=== PATIENT | male | born 1965 | race Caucasian/White ===

== ENCOUNTER → 2021-11-22 | Outpatient (CLI) | payer BC | END | disposition home or self-care (01) | LOC: LABPAT 15:07 | PROVIDERS: ATTEND Surgery | DX: Z01.812 Encounter for preprocedural laboratory examination (principal); K40.90 Unilateral inguinal hernia, without obstruction or gangrene, not specified as recurrent | CPT/HCPCS: 85025; 86850; 86900; 86901; 93005 ==

== ENCOUNTER 2021-11-26 08:34 | Day surgery (SDC) | payer BC ==
[2021-11-22 22:36] LABS: Basophils # (A) 0.05 X 10*3/uL (0.00-0.10); Eosinophils # (A) 0.03 X 10*3/uL (0.04-0.35); Eosinophils % (A) 0.6 %; HGB 15.2 g/dL (13.0-17.0); Immature Grans, Automated 0.2 %; Lymphocytes # (A) 1.48 X 10*3/uL (0.90-5.00); MCH 33.3 pg (27.0-32.0); MCHC 34.5 g/dL (32.0-37.0); MCV 96.3 fL (80.0-97.0); Mean Platelet Volume 10.2 fL (9.5-12.2); Monocytes # (A) 0.71 X 10*3/uL (0.20-1.00); Monocytes % (A) 14.4 %; NRBC Per 100 WBC 0 /100 WBCS (0.0-0.0); Neutrophils # (A) 2.65 X 10*3/uL (1.80-7.70); Neutrophils % (A) 53.8 %; Platelet Count 178 X 10*3/uL (140-440); RBC 4.57 X 10*6/uL (4.40-5.60); RDW 12.1 % (11.5-14.5); WBC 4.93 X 10*3/uL (4.50-10.00)
--- NOTE | 2021-11-26 07:40 | P.GSHP ---
History of Present Illness H&P Date: 11/26/21 Chief Complaint: Left inguinal hernia 56-year-old male here today for elective repair left inguinal hernia. Patient says this is been there for the last several months. Mild pain at times. No symptoms on the right. No prior hernias. Past Medical History Past Medical History: Hypertension History of Any Multi-Drug Resistant Organisms: None Reported Past Surgical History: No Surgical Hx Reported Past Anesthesia/Blood Transfusion Reactions: No Reported Reaction Additional Past Anesthesia/Blood Transfusion Reaction / Comment(s): no hx anesthesia or transfusions Smoking Status: Current every day smoker - Past Family History Father Family Medical History: Diabetes Mellitus Mother Family Medical History: No Reported History Additional Family Medical History / Comment(s): Medications and Allergies Home Medications Medication Instructions Recorded Confirmed Type Losartan Potassium 100 mg PO DAILY 03/19/16 11/23/21 History Allergies Allergy/AdvReac Type Severity Reaction Status Date / Time No Known Allergies Allergy Verified 11/23/21 08:18 Surgical - Exam Physical exam: General: Well-developed, well-nourished HEENT: Normocephalic, sclerae nonicteric Abdomen: Nontender, nondistended, reducible left inguinal hernia Extremities: No edema Neuro: Alert and oriented Results - Labs 11/22/21 15:14 Assessment and Plan (1) Left inguinal hernia Narrative/Plan: 56-year-old male with left inguinal hernia. We'll proceed with to da Seema assisted laparoscopic repair left inguinal hernia with mesh, possible open, possible bilateral. Risks of bleeding, infection, recurrence, bladder and bowel injury, numbness, nerve injury, conversion to an open procedure were discussed with the patient. The patient understands and wishes to proceed. Status: Acute Code(s): K40.90 - UNIL INGUINAL HERNIA, W/O OBST OR GANGR, NOT SPCF RECUR SNOMED Code(s): 597581209
[~2021-11-26 08:34] MED LIST: ACETAMINOPHEN TAB 500 MG TAB PO PRN; DEXAMETHASONE SOD PHOSPHATE 4 MG/ML 1 ML VIAL IV ONE; HEPARIN SODIUM,PORCINE/PF 5,000 UNIT/0.5 ML SYRINGE SQ PRN; HYDROmorphone 0.5 MG/0.5 ML SYRINGE IVP PRN; LACTATED RINGERS 1,000 ML IV SCH; MIDAZOLAM 2 MG/2 ML VIAL IV PRN; ONDANSETRON 4 MG/2 ML VIAL IVP ONE; SCOPOLAMINE 1 MG/72 HR PATCH TRANSDERM ONE
[2021-11-26] MEDS ORDERED: BUPIVACAIN-EPI 0.25%-1:200,000 30 ML VIAL SQ ONE ×3 (09:09→09:53)
[2021-11-26 09:17] LABS: Glucose,Whole Blood 85 mg/dL (70-110)
[2021-11-26] MEDS ORDERED: ROCURONIUM 10 MG/ML (5 ML VIAL) IV ONE (09:32)
[2021-11-26] MEDS ORDERED: GLYCOPYRROLATE 0.2 MG/ML 2 ML VIAL ONE (09:32)
[2021-11-26] MEDS ORDERED: fentaNYL (PF) 50 MCG/ML 2 ML AMP ONE (09:32)
[2021-11-26] MEDS ORDERED: LABETALOL 5 MG/ML VIAL MDV ONE (09:32)
[2021-11-26] MEDS ORDERED: KETOROLAC 15 MG/ML 1 ML VIAL ONE (09:32)
[2021-11-26] MEDS ORDERED: PROPOFOL 10 MG/ML 20 ML VIAL IV ONE (09:32)
[2021-11-26] MEDS ORDERED: HYDROmorphone (PF) 1 MG/ML ONE (09:32)
[2021-11-26] MEDS ORDERED: MIDAZOLAM 2 MG/2 ML VIAL ONE (09:32)
[2021-11-26] MEDS ORDERED: LIDOCAINE 2% INJ 20 MG/ML (2 ML VIAL) ONE (09:32)
[2021-11-26] MEDS ORDERED: NEOSTIGMINE 1 MG/ML 10 ML VIAL ONE (09:32)
[2021-11-26] MEDS ORDERED: LACTATED RINGERS 1,000 ML IV ONE ×2 (10:12→12:15)
[2021-11-26 11:07] VITALS: RESP 16; TEMP 97.6
--- NOTE | 2021-11-26 11:16 | P.OP ---
Date of Procedure: 11/26/21 Procedure(s) Performed: PREOPERATIVE DIAGNOSIS: Left inguinal hernia POSTOPERATIVE DIAGNOSIS: Same PROCEDURE: Da Seema assisted laparoscopic repair left inguinal hernia SURGEON: Dr. Espinosa ANESTHESIA: General OPERATIVE PROCEDURE DETAILS: Patient was placed in the operating table in the supine position. The patient was placed under general anesthesia. The abdomen was prepped and draped in usual sterile fashion. A small curvilinear supraumbilical incision was made. The fascia was retracted anteriorly with Gary forceps. The Veress needle was inserted. The saline drop test was normal. Insufflation took place to 15 mmHg. An 8 mm trocar was placed into the peritoneal cavity. 2 additional 8 mm trochars were placed in the right upper quadrant and left upper quadrant under visualization. The robotic arms were then brought in and docked into place. The fenestrated bipolar was used in the left arm and the laparoscopic amanda was utilized in the right arm. A 30 8 mm scope was used in the up position. The peritoneal cavity was inspected. The patient had no visible hernias on the right-hand side. An obvious indirect hernia was seen on the left. The left side was addressed. The peritoneum was incised in a horizontal fashion cephalad to the internal inguinal ring. Following that careful dissection of the preperitoneal space took place. This took place using both electrocautery, sharp dissection but primarily blunt dissection. Visualization of the pubic tubercle and Oni's ligament took place medially. Full dissection took place laterally as well. The patient had in addition to the indirect inguinal hernia a small less than 1 cm defect in the direct space. Both hernia sacs were fully dissected. Once we had adequate space the extra-large Bard 3-D mid mesh was advanced into the preperitoneal space and flattened out appropriately to cover all potential hernia sites. No sutures were used. The peritoneal defect was then closed using a absorbable 2-0 VLok suture. The hernia sac was incorporated into the peritoneal closure to help prevent future recurrence. The pneumoperitoneum was then evacuated. The skin of all 3 sites was closed using a 4-0 Monocryl stitch. Skin glue was then applied. TYPE OF MESH USED: Bard 3-D mid extra-large LOCATION OF MESH: Preperitoneal FIXATION: None PREOPERATIVE DISCUSSION ON SMOKING CESSASTION: Yes PREOPERATIVE DISCUSSION ON MORBID OBESITY: Yes PREOPERATIVE DISCUSSION ON APPROPRIATE USE OF NARCOTIC USE: Yes PREOPERATIVE EDUCATION: Multi Modal, Smoking Cessation and Weight Loss with BMI over 35. DISPOSITION: Stable to recovery room
[2021-11-26] MEDS ORDERED: ACETAMINOPHEN TAB 325 MG TAB PO SCH (12:00)
[2021-11-26 12:34] VITALS: BP 133/78; PULSE 45
[2021-11-26] MEDS ORDERED: TAMSULOSIN 0.4 MG CAP.ER.24H PO ONE (13:46)
[2021-11-26] MEDS ORDERED: IV FLUID CONTINUATION 1,000 ML IV ONE (13:47)
[2021-11-26] MEDS ORDERED: IBUPROFEN 600 MG TAB PO SCH (14:15)
== END 2021-11-26 15:15 | disposition home or self-care (01) ==
LOC: OR 08:34
PROVIDERS: ATTEND Surgery
DX: K40.90 Unilateral inguinal hernia, without obstruction or gangrene, not specified as recurrent (principal)
CPT/HCPCS: 86900; 86901; 85025; 86850; 93005; 49650; C1781; J2250; J1100; J2710; J0690; J2405; J3010; J1170; J1885; J2704; J1644; J2001

== ENCOUNTER → 2023-12-06 | Outpatient (CLI) | payer BC ==
--- NOTE | 2023-12-06 22:38 | MR ---
EXAMINATION TYPE: MR shoulder RT wo con DATE OF EXAM: 12/06/2023 COMPARISON: Outside right shoulder x-ray December 01, 2013 HISTORY: Severe right shoulder pain x 2 weeks, limited ROM, no trauma. TECHNIQUE: Multiplanar, multisequence imaging of the right shoulder is performed without contrast. FINDINGS: Rotator Cuff: Intact supraspinatus and infraspinatus tendons. Slight increased signal along their cou rse. Intact subscapularis tendon. Rotator cuff muscle bulk is preserved Acromioclavicular Joint: Moderate narrowing with mild capsular hypertrophy and spurring Glenohumeral Joint: Small joint effusion. No significant spurring is seen. Focal fluid or loculated c ystic lesion along the posterior aspect of the osseous glenoid measuring 2.1 x 0.7 cm axial image 18 Labrum: The labrum appears grossly intact given limitation of non-arthrogram study. Biceps Tendon: The long head of biceps is in normal location within bicipital groove. Bone marrow signal: Some heterogeneity consistent with red marrow reconversion. Other: No additional significant abnormality is appreciated. IMPRESSION: 1. Mild tendinosis of supraspinatus and infraspinatus tendon. No rotator cuff or labral tear is seen. Other findings as noted above.
== END | disposition home or self-care (01) ==
LOC: RADMRIMAIN 13:44
PROVIDERS: ATTEND Orthopaedic Surgery
DX: M67.813 Other specified disorders of tendon, right shoulder (principal)

== ENCOUNTER → 2024-01-13 | Outpatient (CLI) | payer BC ==
--- NOTE | 2024-02-04 13:29 | MR ---
Patient: Babar Bender E Ordering Physician: Unknown, Unknown ID: [id number] Phone, Pager: Phone: N/A Pager: N/A : [phone] Age/Gender: 58Y, M Primary Location: N/A Procedure: MR cervical spine wo Study Date: 01/13/2024 6:18:36 PM EXAMINATION TYPE: MR cervical spine wo con DATE OF EXAM: 01/28/2024 6:40 AM CLINICAL INDICATION: Neck pain into right shoulder COMPARISON: 12/29/2023. TECHNIQUE: Multi planar, multi sequence imaging was performed utilizing: T1-weighted, T2-weighted, an d turbo inversion recovery imaging of the cervical spine. IV Contrast: cc (none if empty) FINDINGS: Alignment: The cervical vertebral bodies have preserved heights. Alignment is within normal limits gi todd patient positioning. Bones: Scattered Modic endplate changes with osteophytes and disc space narrowing. Multilevel degener ative disc disease is noted and most pronounced at the C5-C7 vertebral levels. Cord: The spinal cord is unremarkable with regards to their signal intensity and morphology. Discs: Intervertebral disc signal is maintained. C2-C3: No significant disc pathology. The spinal canal is patent. No neural foraminal stenosis. C3-C4: No significant disc pathology. The spinal canal is patent. Bilateral facet and uncovertebral joint arthropathy are present with moderate right and mild left neural foraminal stenosis. C4-C5: No significant disc pathology. The spinal canal is patent. Bilateral facet and uncovertebral joint arthropathy are present with moderate to severe bilateral neural foraminal stenosis. C5-C6: No significant disc pathology. The spinal canal is patent. Bilateral facet and uncovertebral joint arthropathy are present with moderate to severe left and moderate neural foraminal stenosis. C6-C7: No significant disc pathology. The spinal canal is patent. Bilateral facet and uncovertebral joint arthropathy are present with moderate to severe right and moderate left neural foraminal stenos is. C7-T1: No significant disc pathology. The spinal canal is patent. No neural foraminal stenosis. Other: None. IMPRESSION: 1. No evidence for disc herniation or significant spinal canal stenosis. 2. Moderate disc degeneration with associated osteoarthritic changes. Neural foraminal stenosis worse at C6-C7 with moderate to severe right, C5-C6 moderate to severe left and moderate to severe bilater al C4-C5.
== END | disposition home or self-care (01) ==
LOC: RADMRIMAIN 19:15
PROVIDERS: ATTEND Nurse Practitioner Family
DX: M47.22 Other spondylosis with radiculopathy, cervical region (principal); M62.81 Muscle weakness (generalized); M48.02 Spinal stenosis, cervical region
CPT/HCPCS: 72141

== ENCOUNTER → 2024-03-29 | Outpatient (CLI) | payer BC ==
[2024-03-29 08:48] VITALS: BP 151/92; PULSE 91; RESP 16; TEMP 97.3
--- NOTE | 2024-03-29 10:25 | P.PAINPG ---
PQRS Measure Charge Sheet Comment: HISTORY OF PRESENT ILLNESS: A 58 yr old male as a referral from [facility] presents today w severe and chronic neck pain > 3 mo secondary to radiculopathy, spondylosis and facet arthropathy without myelopathy for evaluation. Pt states pain level is provoked at 7 /10 in intensity, constant, localized in the mid to lower R cervical spine, predominantly axial, achy in character w occasional shooting pain towards the R shoulder and RUE. Pain is provoked by lifting. Pain is alleviated by physician guided home exercises from Dr Grubbs 5 times weekly since Jan 2024, medications (Neurontin, Celebrex), repositioning and rest . PMH: OA, HTN PSH: L Inguinal Hernia Repair (2021) SH: Daily tobacco use, Occ ETOH use, No illicit drug use FH: Fa- DM. MO- All: See list Meds: See list REVIEW OF ORGAN SYSTEMS: CONSTITUTIONAL: No fevers or chills. No recent weight loss. NEUROLOGICAL: + numbness and tingling along the distal extremities. No seizure disorders or headaches. MUSCULOSKELETAL: + pain PSYCHIATRIC: Denies current depression or suicidal thoughts. Physical Examinations : Constitutional : Cooperative , not in acute distress . Neurologic : Cranial nerve II to XII intact. No focal neurological deficits. Psychiatric : alert & oriented x 3. Matching mood & appropriate affect. Judgment & insight intact. Musculoskeletal : Cervical Spine Motor strength in the deltoid and biceps: Normal right side. Normal Left side Motor strength biceps and the wrist extensors: Normal right side . Normal left side Motor strength in the triceps muscle: Normal right side. Normal left side Deep tendon reflexes: Normal at the biceps. Normal at Brachioradialis. Normal at triceps Vertebral body tenderness to deep palpation over C6 Chisholm test positive R C6-C7 Cervical facet loading test: positive bilaterally Spurling test: positive bilaterally Neck distraction test: positive bilaterally Maya sign: positive bilaterally Lumbar spine Motor strength lower extremities ,thigh and legs 5/5 Right side , 5/5 Left side Deep tendon reflexes : Normal Knee Jerk. Normal Ankle Jerk Vertebral body tenderness over Chisholm Test positive Lumbar facet Loading Test: positive Right / positive Left Range of motion of the lumbar spine Flexion 30 degrees, extension 10 degrees Straight Leg Raise test: Left/ Right positive at degrees Jennyfer test: positive right / positive left. Severe tenderness over the Sacroiliac joint on the Right / Left sides Gaenslen test: positive bilaterally Seated flexion test: positive bilaterally. Sacral spine : Severe tenderness over the Sacroiliac joint: right side / left side Range of motion: Flexion of the lumbar spine <60 degrees Range of motion: Extension of the lumbar spine <20 degrees Gaenslen's Test positive Jennyfer test: positive right side / left side Thigh Thrust Test Sacral Thrust Test Imaging: MRI non contrast cervical spine from 01/13/24 reviewed Assessment/ Plan : Cervical raiduclopathy Recommendation of Yadiel TFMICHELA C6-C7 #1. Risks, benefits of procedure discussed and patient verbalized understanding. Admits to anti- coagulant use or medical history of diabetes. Protocol for discontinuation/ continuation of medications linda procedure discussed. All questions answered. I have spent greater than 30 minutes on patient care today. Dr Noyola was available by phone for the evaluation of this patient. The time was used to review the medical records including relevant urine studies and Prescription history (MAPs), review of the available imaging, evaluation and examination of the patient, coordination of care with the medical staff and if applicable referring physicians, as well as creation of the medical record PQRS Narrative: Smoking Status Never smoker Home Medications: Ambulatory Orders Losartan Potassium 100 mg PO DAILY 03/19/16 oxyCODONE HCL [OxyIR] 5 mg PO Q6H PRN 3 Days #6 tab 11/26/21 Controlled Substance Measures - Controlled Substance Measures Is patient prescribed a controlled substance at discharge?: No
== END ==
LOC: PNWHC3 07:56
PROVIDERS: ATTEND Specialist
DX: M47.892 Other spondylosis, cervical region
CPT/HCPCS: 99211

== ENCOUNTER 2024-04-20 13:19 | Day surgery (SDC) | payer BC ==
[2024-04-12 11:27] VITALS: BMI 23.7
[~2024-04-20 13:19] MED LIST changes: -ACETAMINOPHEN TAB 500 MG TAB PO PRN; -DEXAMETHASONE SOD PHOSPHATE 4 MG/ML 1 ML VIAL IV ONE; -HEPARIN SODIUM,PORCINE/PF 5,000 UNIT/0.5 ML SYRINGE SQ PRN; -HYDROmorphone 0.5 MG/0.5 ML SYRINGE IVP PRN; -MIDAZOLAM 2 MG/2 ML VIAL IV PRN; -ONDANSETRON 4 MG/2 ML VIAL IVP ONE; -SCOPOLAMINE 1 MG/72 HR PATCH TRANSDERM ONE
[2024-04-20 14:14] VITALS: TEMP 97
[2024-04-20] MEDS ORDERED: IOPAMIDOL M200 10 ML VIAL ONE (14:25)
[2024-04-20] MEDS ORDERED: DEXAMETHASONE SOD PHOSPHATE 10 MG/ML 1 ML VIAL ONE (14:25)
--- NOTE | 2024-04-20 14:39 | P.PCN ---
Date of Procedure: 04/20/24 Procedure(s) Performed: PREOPERATIVE DIAGNOSIS: 1-Cervical radiculopathy .2-cervical foraminal stenosis.33-cervical facet arthropathy. 4-cervical degenerative disc disease POSTOPERATIVE DIAGNOSIS: Same as preoperative diagnoses. PROCEDURE 1. Transforaminal epidural steroid injection under fluoroscopic guidance at right C6-7 level. (Fluoroscopy images stored on file in the radiology Department ) ANESTHESIA: Local with 1% lidocaine 3 ml . EBL: Minimal PROCEDURE INDICATION: The patient with severe neck pain and radiculopathy to the upper extremity , the symptoms unresponsive to conservative treatment. PROCEDURE DESCRIPTION / TECHNIQUE: The patient was seen and identified in the preoperative area. Risks, benefits, complications, and alternatives were discussed with the patient. The patient agreed to proceed with the procedure and signed the consent, and vital signs were stable. Patient was taken to the OR and time out was completed. The patient was placed in the Lateral position on procedure table ( right side up ). The cervical area was prepped and draped in the usual sterile fashion. Critical pause was taken. Vital signs were closely monitored during the procedure. Using oblique fluoroscopy, the Right C6-7 level was identified, in the lateral view , the skin and deeper tissues just below was localized with 1% lidocaine. Subsequently, a 22-gauge 3.5-inch spinal needle was advanced under a tunneled view fluoroscopic guidance just underneath the foraminotomy of at the right C6-7 Under lateral fluoroscopy, the needle was then advanced to the posterior border of the interforaminal space. After negative aspiration of CSF and blood and with no paresthesias, 1 mL Isovue 200 contrast dye was injected excellent epidurogram , 2 mL of block solution containing 20 mg Dexamethasone and 1 mL of 0.9% normal saline PF was injected. Needle was removed . At the end of the procedure, skin was cleansed, and bandages were applied. COMPLICATIONS:none DISPOSITION / PLANS: The patient was placed in a supine position and transferred to the recovery area in a stable condition for observation. There was no evidence of lower extremity motor or sensory deficit after the procedure. Patient was discharged from the recovery room after meeting discharge criteria. Home discharge instructions were given to the patient by the staff. The patient was reexamined prior to discharge.
--- NOTE | 2024-04-20 14:46 | FL ---
Intraoperative/procedural fluoroscopic services were provided for cervical pain management. Total flu oroscopy time is 56.6 seconds with a total of 4 submitted images to PACS. Total DAP [id number] [id number]. P lease see the operative note for further details. [facility], , 04/20/2024 2:44 PM
[2024-04-20 14:58] VITALS: BP 152/89; PULSE 77; RESP 18
== END 2024-04-20 15:06 | disposition home or self-care (01) ==
LOC: ORPAIN 13:19
PROVIDERS: ATTEND Specialist
DX: M48.02 Spinal stenosis, cervical region (principal); M47.22 Other spondylosis with radiculopathy, cervical region
CPT/HCPCS: 64479; J1100; Q9966; 64483

== ENCOUNTER → 2024-08-17 | Outpatient (CLI) | payer BC ==
--- NOTE | 2024-08-17 13:24 | XR ---
EXAMINATION TYPE: XR cervical spine comp DATE OF EXAM: 08/17/2024 12:47 PM COMPARISON: MRI and cervical spine plain film CLINICAL INDICATION: Male, 59 years old with history of S13.0XXA TRAUMATIC RUPTURE OF CERVICAL INTERV ERT; PHH, pain TECHNIQUE: The cervical spine was imaged in frontal, lateral, odontoid and bilateral oblique. Additio nal bending and flexion views. FINDINGS: The osseous structures show normal alignment without evidence of an acute fracture. There are osteoph ytes noted throughout the cervical spine on the anterior and lateral aspects of the vertebral bodies. The intervertebral disk spaces are narrowed at multiple levels. Large osteophytes impresses upon the posterior esophagus. Pedicles are intact. Soft tissues are within normal limits. The odontoid appea rs intact. Spine stays relatively straight on flexion view and extension view. IMPRESSION: 1. No fracture or dislocation. 2. Moderate degenerative disc disease changes of the cervical spine. 3. Relatively straightened spine on flexion and extension views. [facility], , 08/17/2024 1:22 PM
== END | disposition home or self-care (01) ==
LOC: RADXRMAIN 12:31
PROVIDERS: ATTEND Neurological Surgery
DX: S13.0XXA Traumatic rupture of cervical intervertebral disc, initial encounter (principal)
CPT/HCPCS: 72050